=== PATIENT | male | born 1990 | race African-American/Black ===

== ENCOUNTER 2020-07-13 08:41 | Emergency (ER) | payer OTHER ==
[~2020-07-13] VITALS: Ht 182.9 cm; Wt 90.7 kg
[2020-07-13 09:21] LABS: HEMATOCRIT 43.5 % (42.0-52.0); HEMOGLOBIN 13.7 gm/dL (14.0-18.0); MCH 26.9 pg (26.0-34.0); MCHC 31.4 g/dL (28.0-37.0); MCV 85.7 fL (80.0-100.0); RBC 5.08 mil/uL (4.50-6.00); RDW 14.9 % (10.5-14.5); WBC 9.3 thou/uL (4.0-11.0)
[2020-07-13 09:24] LABS: CALCIUM 8.8 mg/dL (8.5-10.1); CREATININE 1.8 mg/dL (0.7-1.3); POTASSIUM 3.6 mmol/L (3.5-5.1)
[2020-07-13 12:21] LABS: AMP/METHAMP Negative (Negative); BARBITURATES Negative (Negative); BENZODIAZEPINES POSITIVE (Negative); COCAINE Negative (Negative); METHADONE Negative (Negative); OPIATES Negative (Negative); PCP Negative (Negative)
[2020-07-13 13:10] LABS: CALCIUM 8.3 mg/dL (8.5-10.1); CREATININE 1.5 mg/dL (0.7-1.3); POTASSIUM 3.7 mmol/L (3.5-5.1)
[2020-07-13 16:15] VITALS: BP 158/99
--- NOTE | 2020-07-15 07:30 | EKG ---
[facility] [place] [address] ELECTROCARDIOGRAM REPORT Name: NINA MONSALVE Room #: DEP [facility]#: [id number] Admission: 07/13/20 Attend Phys: Discharge: 07/13/20 Date of : 89 Report #: [id number] THIS REPORT FOR: cc: FAM - Family physician unknown FAM - Family physician unknown Siva White MD [facility] ~ THIS REPORT FOR: //name// [facility] ED Test Date: 2020-07-13 Test Time: 09:52:06 Pat Name: NINA MONSALVE Department: Room: Gender: M Quantitative Consultant: JAN : 1990 Requested By: Virgilio Flores Order Number: [id number] MD: Siva White Measurements Intervals [place] Rate: 105 P: 65 CA: 144 QRS: 34 QRSD: 93 T: 24 QT: 354 QTc: 468 Interpretive Statements Sinus tachycardia Atrial premature complex LVH by voltage No previous ECG available for comparison Electronically Signed On 07-15-2020 7:30:24 [employer] by Siva White [email or web address] <ELECTRONICALLY SIGNED> By: Siva White MD, FACC 07/15/20 0730 [id number] 1 Siva White MD, FACC /EPI
== END 2020-07-13 16:15 | disposition home or self-care (01) ==
LOC: ER 08:41 → EDBD 08:41 → ER 16:15
PROVIDERS: Emergency Medicine
DX: M62.82 Rhabdomyolysis (principal); Z20.828 Contact with and (suspected) exposure to other viral communicable diseases